=== PATIENT | male | born 1950 | race Caucasian/White ===

== ENCOUNTER 2019-07-22 06:25 | Day surgery (SDC) | payer MEDICARE, OTHER ==
[~2019-07-22] VITALS: Ht 172.7 cm; Wt 73.0 kg
[~2019-07-22 06:25] MED LIST: FINA5TAB41 PO; METH5TAB2 PO
[2019-07-22] MEDS ORDERED: LIDOCAINE/PF 2% 5 ML SYRINGE IVP ONE (06:26)
[2019-07-22] MEDS ORDERED: SODIUM CHLORIDE 0.9% 1,000 ML IV ONE (06:30)
[2019-07-22] MEDS ORDERED: SODIUM CHLORIDE 0.9% 1,000 ML ONE (06:31)
== END 2019-07-22 11:20 | disposition home or self-care (01) ==
LOC: SURGERY 06:25
PROVIDERS: ATTEND Internal Medicine Gastroenterology
DX: K92.1 Melena (principal); K64.8 Other hemorrhoids
CPT/HCPCS: 45378; J3490; J7030